=== PATIENT | male | born 1960 | race Two or more races ===

== ENCOUNTER → 2017-05-28 | Outpatient (CLI) | payer SELFPAY ==
--- NOTE | 2017-05-28 09:13 | KCIC ---
ABDOMEN LTD History: Right upper quadrant pain, suspected gallbladder disease Comparison: None. Findings: Multiple sonographic images of the abdomen are submitted. There is no significant abnormality of the visualized pancreas although most of the distal body and tail not well-visualized due to bowel gas. Inferior vena cava is also not well visualized due to bowel gas. Visualized abdominal aortic caliber is within normal limits, greatest dimension approximately up to 1.9 cm. Right kidney measured 12.2 x 6.5 x 5.9 cm, no hydronephrosis. Gallbladder is present without intraluminal abnormality, wall thickening, pericholecystic fluid. Common bile duct is within normal limits at 0.4 cm. There is coarsening of the echotexture of liver. There is area of hypoechogenicity of the left lobe of the liver on the order of 3.6 x 2.2 x 5.7 cm not associated with internal vascularity. This is more hypoechoic than typically seen with focal fatty sparing. Impression: 1. There is hepatic steatosis. There is hypoechoic focus of the left lobe liver on the order of up to 5.7 cm not associated with internal vascularity although degree of hypoechogenicity greater than would be typically seen with focal fatty sparing. However this also does not have features convincingly of an avascular mass. Etiology is uncertain. If clinically needed, MRI characterization could be performed. Electronically signed by: Dominick Garcia MD (05/28/2017 9:09 AM) [id number]
== END | disposition home or self-care (01) ==
LOC: KCIC US 07:46
DX: K76.0 Fatty (change of) liver, not elsewhere classified (principal)
CPT/HCPCS: 76705